=== PATIENT | female | born 1945 | race Caucasian/White ===

== ENCOUNTER 2022-04-17 06:48 | Observation (INO) | payer OTHER ==
[2022-04-13 12:56] VITALS: BP 142/62
[2022-04-13 13:24] LABS: BASOPHILS % (AUTO) 0.5 % (0.0-5.0); EOSINOPHILS % (AUTO) 1.4 % (0.0-8.0); HEMATOCRIT 41.6 % (36-48); LYMPHOCYTES % (AUTO) 26.6 % (21.0-51.0); MEAN CORPUSCULAR HEMOGLOBIN 30.1 pg (27.0-33.0); MEAN CORPUSCULAR HGB CONC 32.9 g/dL (32.0-36.0); MEAN CORPUSCULAR VOLUME 91.4 fL (79-99); MONOCYTES % (AUTO) 5.3 % (3.0-13.0); PLATELET COUNT (AUTO) 372 K/uL (130-400); RED BLOOD CELL COUNT(AUTO) 4.55 MIL/uL (4.00-5.50); RED CELL DISTRIBUTION WIDTH 13.5 % (11.0-15.5); WHITE BLOOD COUNT (AUTO) 9.2 K/uL (4.8-10.8)
[2022-04-13 13:45] LABS: CREATININE 1.5 mg/dL (0.5-1.5); POTASSIUM 3.3 mmol/L (3.5-5.1)
[2022-04-13 13:46] LABS: INR 0.98 (0.85-1.15); PROTHROMBIN TIME 10.7 SEC (9.6-11.6)
[2022-04-13 13:47] LABS: PARTIAL THROMBOPLASTIN TIME 22.4 SEC (26.3-35.5)
[~2022-04-17] VITALS: Ht 156.2 cm; Wt 82.5 kg
[2022-04-17] VITALS (27 sets, daily range): BP systolic 111–178; BP diastolic 47–89
[~2022-04-17 06:48] MED LIST: AMLO-257 PO; CEFAZOLIN SODIUM 2 GM VIAL IVPB SCH; LACTATED RINGERS 1000ML 1,000 ML IV SCH; LEVO25TA54 PO; LOSA1TAB42 PO; METO50TA18 PO; ROSU40TA21 PO; TRANEXAMIC ACID 1000MG/10ML IJ SCH
[2022-04-17 09:07] LABS: CREATININE 1.4 mg/dL (0.5-1.5); POTASSIUM 3.9 mmol/L (3.5-5.1)
[2022-04-17] MEDS ORDERED: TRANEXAMIC ACID 1000MG/10ML ONE (11:02)
[2022-04-17] MEDS ORDERED: KETOROLAC 30MG VIAL (30MG/ML) ONE (12:57)
[2022-04-17] MEDS ORDERED: ONDANSETRON 4MG INJ ONE (12:57)
[2022-04-17] MEDS ORDERED: LIDOCAINE PF 100MG/5ML (2%) SYRINGE 5ML ONE (12:57)
[2022-04-17] MEDS ORDERED: PROPOFOL 10 MG/ML 20ML VIAL IV ONE (12:58)
[2022-04-17] MEDS ORDERED: ROCURONIUM 10MG/1ML SYR 10 MG/ML ML ONE (12:58)
[2022-04-17] MEDS ORDERED: FENTANYL CITRATE PF 50 MCG/1 ML 2ML VIAL ONE ×2 (12:58→14:46)
[2022-04-17] MEDS ORDERED: MIDAZOLAM HCL 1 MG/ML 2ML VIAL ONE (12:58)
[2022-04-17] MEDS ORDERED: CEFAZOLIN SODIUM 2 GM VIAL IVPB ONE (13:31)
[2022-04-17] MEDS ORDERED: KCL 20 MEQ ERTAB PO PRN (14:00)
[2022-04-17] MEDS ORDERED: HYDROCODONE/ACETAMINOPHEN 5/325 MG TAB PO PRN (14:00)
[2022-04-17] MEDS ORDERED: POTASSIUM CHLORIDE 10% ELIXIR 20 MEQ/15 ML UDCUP PO PRN (14:00)
[2022-04-17] MEDS ORDERED: ONDANSETRON 4MG INJ IVP PRN (14:00)
[2022-04-17] MEDS ORDERED: FERROUS FUMARATE 324 MG TABLET PO PRN (14:00)
[2022-04-17] MEDS ORDERED: LIDOCAINE HCL-MPF 1% 2ML VIAL IV PRN (14:00)
[2022-04-17] MEDS ORDERED: POTASSIUM CHLORIDE 20MEQ/100ML 100 ML IV PRN (14:00)
[2022-04-17] MEDS ORDERED: MORPHINE 4 MG SYG IVP PRN (14:00)
[2022-04-17] MEDS ORDERED: GLYCOPYRROLATE 1 MG/5 ML SYRINGE ONE (14:01)
[2022-04-17] MEDS ORDERED: NEOSTIGMINE 5MG/5ML SYR IV ONE (15:34)
[2022-04-17] MEDS ORDERED: MEPERIDINE-PF 25 MG/ML SYG ONE ×2 (15:49→16:23)
[2022-04-17] MEDS: ACETAMINOPHEN 1,000 MG/100 ML VIAL IV SCH ×2 (16:14→19:55)
[2022-04-17] MEDS: TRAMADOL HCL 50 MG TABLET PO SCH (18:21)
[2022-04-17] MEDS: CEFAZOLIN SODIUM 1 GM VIAL IVPB SCH (18:21)
[2022-04-17] MEDS: IBUPROFEN 800MG + NS 250ML IV SCH (19:56)
[2022-04-17] MEDS: ASPIRIN 81 MG EC TAB PO SCH (20:48)
[2022-04-17] MEDS: METOPROLOL TARTRATE 50 MG TAB PO SCH (20:48)
[2022-04-17] MEDS: AMLODIPINE 5 MG TAB PO SCH (20:48)
[2022-04-18] VITALS: BP 122/76
[2022-04-18] MEDS: TRAMADOL HCL 50 MG TABLET PO SCH ×4 (00:15→17:19)
[2022-04-18] MEDS: IBUPROFEN 800MG + NS 250ML IV SCH ×2 (00:15→08:09)
[2022-04-18] MEDS: ACETAMINOPHEN 1,000 MG/100 ML VIAL IV SCH (02:34)
[2022-04-18] MEDS: CEFAZOLIN SODIUM 1 GM VIAL IVPB SCH (03:32)
[2022-04-18 04:00] VITALS: BP 123/61
[2022-04-18 06:07] LABS: HEMATOCRIT 37.6 % (36-48); MEAN CORPUSCULAR HEMOGLOBIN 30.1 pg (27.0-33.0); MEAN CORPUSCULAR HGB CONC 33.2 g/dL (32.0-36.0); MEAN CORPUSCULAR VOLUME 90.6 fL (79-99); RED BLOOD CELL COUNT(AUTO) 4.15 MIL/uL (4.00-5.50); RED CELL DISTRIBUTION WIDTH 13.3 % (11.0-15.5)
[2022-04-18 06:22] LABS: CREATININE 1.2 mg/dL (0.5-1.5); POTASSIUM 3.6 mmol/L (3.5-5.1)
[2022-04-18 08:00] VITALS: BP 127/68
[2022-04-18] MEDS ORDERED: ROPIVICAINE 250MG+KETOROLAC 15MG+EPINEPHRINE 0.3+CLONIDINE 80 IV PRN ×5 (08:00)
[2022-04-18] MEDS: LEVOTHYROXINE 25 MCG TABLET PO SCH (08:09)
[2022-04-18] MEDS: HYDROCHLOROTHIAZIDE 25 MG TABLET PO SCH (08:10)
[2022-04-18] MEDS: FAMOTIDINE 20MG TAB PO SCH (08:10)
[2022-04-18] MEDS: ASPIRIN 81 MG EC TAB PO SCH ×2 (08:10→22:00)
[2022-04-18] MEDS: LOSARTAN 100 MG TABLET PO SCH (08:10)
[2022-04-18] MEDS: POLYETHYLENE GLYCOL 3350 17 GM POWD.PACK PO SCH (08:12)
[2022-04-18] MEDS: AMLODIPINE 5 MG TAB PO SCH ×2 (08:12→22:00)
[2022-04-18] MEDS: 0.9%NACL 1000ML 1,000 ML IV SCH ×2 (10:00)
[2022-04-18 11:30] VITALS: BP 114/56
[2022-04-18 16:00] VITALS: BP 124/57
[2022-04-18 20:00] VITALS: BP 133/58
[2022-04-18] MEDS: METOPROLOL TARTRATE 50 MG TAB PO SCH (22:00)
[2022-04-19] VITALS: BP 145/60
[2022-04-19] MEDS: TRAMADOL HCL 50 MG TABLET PO SCH ×4 (00:04→18:20)
[2022-04-19] MEDS: HYDROCODONE/ACETAMINOPHEN 10/325 MG TAB PO PRN ×4 (03:39→18:24)
[2022-04-19 04:00] VITALS: BP 139/66
[2022-04-19 08:00] VITALS: BP 101/59
[2022-04-19] MEDS: HYDROCHLOROTHIAZIDE 25 MG TABLET PO SCH (09:12)
[2022-04-19] MEDS: POLYETHYLENE GLYCOL 3350 17 GM POWD.PACK PO SCH (09:12)
[2022-04-19] MEDS: AMLODIPINE 5 MG TAB PO SCH (09:12)
[2022-04-19] MEDS: ASPIRIN 81 MG EC TAB PO SCH (09:13)
[2022-04-19] MEDS: LOSARTAN 100 MG TABLET PO SCH (09:13)
[2022-04-19] MEDS: FAMOTIDINE 20MG TAB PO SCH (09:14)
[2022-04-19] MEDS: LEVOTHYROXINE 25 MCG TABLET PO SCH (09:24)
[2022-04-19 12:11] VITALS: BP 114/61
[2022-04-19 16:00] VITALS: BP 129/70
[2022-04-20] MEDS ORDERED: BISACODYL 10 MG SUPP.RECT RC PRN (14:00)
== END 2022-04-19 18:00 | disposition home or self-care (01) ==
LOC: DAH 06:48 → DAHIP 06:49 → DAH 06:49 → 3CH 17:40
PROVIDERS: ADMIT Orthopaedic Surgery; ATTEND Orthopaedic Surgery
DX: M17.12 Unilateral primary osteoarthritis, left knee (principal); Z20.822 Contact with and (suspected) exposure to COVID-19; I10 Essential (primary) hypertension; E78.00 Pure hypercholesterolemia, unspecified; E66.9 Obesity, unspecified; E03.9 Hypothyroidism, unspecified; Z68.33 Body mass index [BMI] 33.0-33.9, adult; Z86.73 Personal history of transient ischemic attack (TIA), and cerebral infarction without residual deficits; Z79.899 Other long term (current) drug therapy
CPT/HCPCS: 97039 ×4; 80048 ×3; 85025; 85610; 85730; 87426; 36415 ×3; 93005; 87641; 27447; 0055T; 96376 ×2; 96365; 96366 ×3; 96375; 96367; 85027; 97161; 97116 ×4; 97530 ×4; A6260; G0378 ×47; A4663; J7030; A4649 ×4; J7120; J3010 ×2; J0690 ×4; J3490 ×2; J2710; J2001; J2250; J2704; J2405 ×2; J1885; J2175 ×2; J1741; G0168; C1776 ×4; A6255; A6254; A5120; A4215; A4223; A4222; A4221